=== PATIENT | female | born 1995 | race Caucasian/White ===

== ENCOUNTER 2018-04-17 00:46 | Observation (INO) | payer OTHER ==
[2018-04-17 01:30] VITALS: BP 112/65; PULSE 87; O2SAT 20
[2018-04-17 01:32] LABS: Amphetamine,Urine NEGATIVE (NEGATIVE); Barbiturate,Urine NEGATIVE (NEGATIVE); Benzodiazepine,Urine NEGATIVE (NEGATIVE); Cocaine,Urine NEGATIVE (NEGATIVE); Methadone,Urine NEGATIVE (NEGATIVE); Opiate,Urine NEGATIVE (NEGATIVE); PCP,Urine NEGATIVE (NEGATIVE); THC,Urine NEGATIVE (NEGATIVE)
[2018-04-17 02:27] LABS: Appearance CLEAR (CLEAR); Leukocyte Esterase TRACE (NEGATIVE)
[2018-04-17 02:28] LABS: Bilirubin NEGATIVE (NEGATIVE); Blood NEGATIVE Ery/ul (0-5); Glucose NEGATIVE (NEGATIVE); Ketones NEGATIVE (NEGATIVE); Nitrite NEGATIVE (NEGATIVE); Protein,Urine Dip NEGATIVE (Negative); Urobilinogen NORMAL mg/dL (0-1)
== END 2018-04-17 03:00 | disposition home or self-care (01) ==
LOC: UNDOADMOB 00:46 → OB 00:46 → UNDODISOB 03:00
PROVIDERS: ADMIT Family Medicine; ATTEND Family Medicine
DX: Z34.03 Encounter for supervision of normal first pregnancy, third trimester (principal)
CPT/HCPCS: 80307; 81001; 83986; G0378

== ENCOUNTER 2018-05-01 23:06 | Observation (INO) | payer OTHER ==
[2018-05-01 23:57] LABS: Amphetamine,Urine NEGATIVE (NEGATIVE); Barbiturate,Urine NEGATIVE (NEGATIVE); Benzodiazepine,Urine NEGATIVE (NEGATIVE); Cocaine,Urine NEGATIVE (NEGATIVE); Methadone,Urine NEGATIVE (NEGATIVE); Opiate,Urine NEGATIVE (NEGATIVE); PCP,Urine NEGATIVE (NEGATIVE); THC,Urine NEGATIVE (NEGATIVE)
[2018-05-02 02:53] VITALS: BP 115/62; PULSE 81
== END 2018-05-02 02:45 | disposition home or self-care (01) ==
LOC: UNDOADMOB 23:06 → OB 23:06 → UNDODISOB 05-02 02:45
PROVIDERS: ADMIT Family Medicine; ATTEND Family Medicine
DX: Z34.03 Encounter for supervision of normal first pregnancy, third trimester (principal)
CPT/HCPCS: 80307; G0378

== ENCOUNTER 2018-05-03 00:50 | Observation (INO) | payer OTHER ==
[2018-05-03] MEDS ORDERED: Lactated Ringers 1,000 ML IV SCH (04:30)
[2018-05-03 15:12] VITALS: BP 119/57; PULSE 75
== END 2018-05-03 15:47 | disposition home or self-care (01) ==
LOC: OB 00:50 → UNDOADMOB 00:50 → UNDODISOB 15:47
PROVIDERS: ADMIT Family Medicine; ATTEND Family Medicine
DX: Z34.03 Encounter for supervision of normal first pregnancy, third trimester (principal)
CPT/HCPCS: G0378

== ENCOUNTER 2018-05-06 15:16 | Observation (INO) | payer OTHER ==
[2018-05-06 15:56] VITALS: BP 116/73; PULSE 89; O2SAT 98
== END 2018-05-06 16:20 | disposition home or self-care (01) ==
LOC: OB 15:16
PROVIDERS: ADMIT Family Medicine; ATTEND Family Medicine
DX: Z34.03 Encounter for supervision of normal first pregnancy, third trimester (principal)
CPT/HCPCS: 59025; G0378

== ENCOUNTER 2018-05-09 14:31 | Observation (INO) | payer OTHER ==
[2018-05-09 15:26] VITALS: BP 121/67; PULSE 86
== END 2018-05-09 15:30 | disposition home or self-care (01) ==
LOC: OB 14:31
PROVIDERS: ADMIT Family Medicine; ATTEND Family Medicine
DX: Z34.03 Encounter for supervision of normal first pregnancy, third trimester (principal)
CPT/HCPCS: 59025; G0378

== ENCOUNTER 2018-05-12 09:26 | Inpatient (IN) | payer OTHER ==
[2018-05-12] MEDS ORDERED: BRETHINE 1 MG/ML SQ PRN (16:00)
[2018-05-12] MEDS ORDERED: Cervidil 10 MG VAG SCH (16:00)
[2018-05-12 18:14] LABS: Hematocrit 37.6 % (35-47); Hemoglobin 12.7 gm/dl (12.0-16.0); Mean Cell Volume 91.7 fl (78-100); Mean Corpuscular Hgb Concent. 33.8 g/dl (32-36); Platelet Count 170 K/mm3 (150-450); Red Cell Distribution Width 13.2 % (11.5-14.0); White Blood Count 14.4 K/mm3 (4.0-10.5)
[2018-05-12 19:14] LABS: Amphetamine,Urine NEGATIVE (NEGATIVE); Barbiturate,Urine NEGATIVE (NEGATIVE); Benzodiazepine,Urine NEGATIVE (NEGATIVE); Cocaine,Urine NEGATIVE (NEGATIVE); Methadone,Urine NEGATIVE (NEGATIVE); Opiate,Urine NEGATIVE (NEGATIVE); PCP,Urine NEGATIVE (NEGATIVE); THC,Urine NEGATIVE (NEGATIVE)
[2018-05-12 19:19] LABS: ATYPICAL LYMPHS 2 %; BAND 2 % (0.0-2.0); Eosinophil 1 % (0.00-3.0); Lymphocytes 30 % (24-44); Monocyte 4 % (0.0-12.0); Neutrophils 61 % (36.0-66.0); Total Cells Counted 100
[2018-05-12 19:20] LABS: Platelet Estimate NORMAL (NORMAL)
[2018-05-13] MEDS: Lactated Ringers 1,000 ML IV SCH ×2 (04:39→12:24)
[2018-05-13] MEDS ORDERED: XYLOCAINE 1% HCL 20 ML MDV IJ PRN (05:00)
[2018-05-13] MEDS ORDERED: PITOCIN 30 UNITS/ LR 500 ML 500 ML IV SCH (05:00)
[2018-05-13] MEDS ORDERED: OB EPIDURAL NAROPIN/SUFENTANIL IN NACL EPIDURAL PRN (12:24)
[2018-05-13] MEDS ORDERED: Lactated Ringers 1,000 ML IV ONE ×2 (12:24→17:15)
[2018-05-13] MEDS ORDERED: Ephedrine Sulfate 50 MG/ML IV PRN (12:24)
[2018-05-13] MEDS ORDERED: XYLOCAINE 2%/Epi 1:200000 20ML VIAL MPF ONE (14:53)
[2018-05-13] MEDS ORDERED: Nubain 10 MG/ML IV PRN (16:02)
[2018-05-13] MEDS ORDERED: HOLD NARCOTIC ANALGESICS AND SEDATIVES X24 HR MC PRN (16:02)
[2018-05-13] MEDS ORDERED: Sodium Chloride 0.9% 10 ML FLUSH Syringe IJ PRN (16:02)
[2018-05-13] MEDS ORDERED: PERCOCET TABLET 5/325MG PO PRN (16:02)
[2018-05-13] MEDS ORDERED: Zofran 4 MG/2 ML VIAL IV PRN (16:02)
[2018-05-13] MEDS ORDERED: Narcan 0.4 MG/ML IV PRN (16:02)
[2018-05-13] MEDS ORDERED: DEMEROL 50 MG IV PRN (16:02)
[2018-05-13] MEDS ORDERED: CLARITIN 10 MG PO PRN (16:02)
[2018-05-13] MEDS ORDERED: MORPHINE SULFATE 2 MG INJ IV PRN (16:02)
[2018-05-13] MEDS ORDERED: BENADRYL 50 MG/ML IV PRN (16:02)
[2018-05-13] MEDS ORDERED: Reglan 10 MG/2 ML IV SCH (16:15)
[2018-05-13] MEDS ORDERED: BICITRA 30 ML CUP PO SCH (16:15)
[2018-05-13] MEDS ORDERED: Pepcid 20 MG VIAL IV SCH (16:15)
[2018-05-13] MEDS ORDERED: CEFAZOLIN 2 GM-D5W BAG** 2 GM/50 ML ML IV SCH (16:30)
[2018-05-13] MEDS ORDERED: Lactated Ringers 1,000 ML IV SCH (16:30)
[2018-05-13 17:07] LABS: Hematocrit 36.8 % (35-47); Hemoglobin 12.3 gm/dl (12.0-16.0); Mean Cell Volume 92.5 fl (78-100); Mean Corpuscular Hemoglobin 30.9 pg (26-32); Mean Corpuscular Hgb Concent. 33.4 g/dl (32-36); Mean Platelet Volume 12.8 fl (6-9.5); Platelet Count 153 K/mm3 (150-450); Red Blood Count 3.98 M/mm3 (4.1-5.4); Red Cell Distribution Width 13.3 % (11.5-14.0); White Blood Count 18.7 K/mm3 (4.0-10.5)
[2018-05-13 17:12] LABS: INR 0.98 (0.8-3.0)
[2018-05-13 17:15] LABS: PTT 24.4 SECONDS (25.3-37.0)
[2018-05-13] MEDS ORDERED: Mylicon 80MG PO PRN (17:20)
[2018-05-13] MEDS ORDERED: Anucort-HC SUPPOSITORY PR PRN (17:20)
[2018-05-13] MEDS ORDERED: TUCKS TP PRN (17:20)
[2018-05-13] MEDS ORDERED: Dulcolax 10 MG SUPP PR PRN (17:20)
[2018-05-13] MEDS ORDERED: CORTISONE 1% CREAM TP PRN (17:20)
[2018-05-13] MEDS ORDERED: LANSINOH 40 GM TOP PRN (17:20)
[2018-05-13 17:41] LABS: ABO TYPING O; Antibody Screen NEGATIVE (NEGATIVE); RH TYPING POSITIVE
[2018-05-13 17:47] LABS: Appearance CLEAR (CLEAR); Bilirubin NEGATIVE (NEGATIVE); Blood NEGATIVE Ery/ul (0-5); Glucose NEGATIVE (NEGATIVE); Ketones NEGATIVE (NEGATIVE); Leukocyte Esterase NEGATIVE (NEGATIVE); Nitrite NEGATIVE (NEGATIVE); Protein,Urine Dip NEGATIVE (Negative); Urobilinogen NEGATIVE mg/dL (0-1)
[2018-05-13] MEDS: Dextrose 5%-Lr IV Solution 1000 ML 1,000 ML IV SCH (18:45)
[2018-05-13] MEDS: Colace 100 MG PO SCH (22:30)
[2018-05-14] MEDS: Dextrose 5%-Lr IV Solution 1000 ML 1,000 ML IV SCH (02:45)
[2018-05-14] MEDS: MOTRIN 400 MG PO PRN ×4 (03:49→23:59)
[2018-05-14 05:56] LABS: Hematocrit 28.6 % (35-47); Hemoglobin 9.4 gm/dl (12.0-16.0); Mean Cell Volume 93.8 fl (78-100); Mean Corpuscular Hemoglobin 30.8 pg (26-32); Mean Corpuscular Hgb Concent. 32.9 g/dl (32-36); Mean Platelet Volume 12.9 fl (6-9.5); Platelet Count 160 K/mm3 (150-450); Red Blood Count 3.05 M/mm3 (4.1-5.4); White Blood Count 23.9 K/mm3 (4.0-10.5)
[2018-05-14 06:43] LABS: Lymphocytes 18 % (24-44); Monocyte 3 % (0.0-12.0); Neutrophils 79 % (36.0-66.0); Platelet Estimate NORMAL (NORMAL); Total Cells Counted 100
[2018-05-14] MEDS ORDERED: Adacel Vial IM ONE (10:00)
[2018-05-14] MEDS: FERREX 150 PO SCH (10:38)
[2018-05-14] MEDS: Colace 100 MG PO SCH (10:38)
[2018-05-14] MEDS: TYLENOL EXTRA STRENGTH 500 MG PO PRN (12:13)
[2018-05-14] MEDS ORDERED: NORCO 5/325 MG PO PRN (17:00)
[2018-05-14] MEDS ORDERED: Ambien 10 MG PO PRN (17:20)
[2018-05-14 21:00] VITALS: O2SAT 98
[2018-05-15] MEDS: TYLENOL EXTRA STRENGTH 500 MG PO PRN (03:23)
--- NOTE | 2018-05-15 07:44 | OP ---
SURGERY DATE/TIME: 05/13/2018 1645 PREOPERATIVE DIAGNOSES: 1) Failed induction of labor. 2) Post-dates . POSTOPERATIVE DIAGNOSIS: 1) Failed induction of labor. 2) Post-dates . 3) Cephalopelvic disproportion. PROCEDURE: Primary section. SURGEON: Roberto Lehman M.D. ANESTHESIA: Epidural. ESTIMATED BLOOD LOSS: 400 ml. IV FLUIDS: 1500 ml of crystalloid. URINE OUTPUT: 300 ml of clear straw-colored urine. SPECIMEN: None. DESCRIPTION OF PROCEDURE: After informed, written consent was obtained, the patient had her previously placed laboring epidural dosed and she was taken to the operating room, prepped and draped in the usual sterile fashion. After adequate level of anesthesia was assessed, a skin incision was made by knife and carried down to the subcutaneous fat to the level of the fascia. The fascia was nicked on both sides of the midline in horizontal fashion using curved Keene scissors. The superior free edge of the fascia was grasped with Elaina clamps and the underlying rectus muscles were dissected free. The same was repeated inferiorly. The peritoneal cavity was opened in horizontal fashion. Bladder flap was then created and reflected over the lower uterine segment. Horizontal uterine incision was made by knife and carried down to the level of the amniotic membranes which were carefully artificially ruptured. There was scant thin meconium stained fluid present. A viable female was delivered from the vertex presentation with some caput noted although mom did not get beyond 2 cm and baby stayed high in the pelvis despite adequate trial of labor. The placenta was removed manually from the uterus after the baby was bulb suctioned from the oropharynx and nares and was handed off to the awaiting nursery team. The uterus was then exteriorized and uterine cavity was sponge curetted clean lap sponge. The uterine incision was closed with #1 chromic in a running locked fashion with good closure and good hemostasis. Posterior cul-de-sac was wiped free of blood and clot with moist lap sponge. The uterus was returned to the peritoneal cavity. Lateral gutters were wiped free of blood and clot with moist lap sponge. The incision was carefully inspected and noted to be hemostatic. Next, the fascia was closed with 0 Vicryl in a running locked fashion. Good closure and good hemostasis were achieved. The subcutaneous fat was irrigated with warm, sterile saline and finally the skin layer was closed with 4-0 undyed Vicryl in a running subcuticular fashion. Steri-Strips and occlusive dressing were placed over the incision. The patient was transferred to the recovery room in good condition.
[2018-05-15] MEDS: FERREX 150 PO SCH (09:56)
[2018-05-15] MEDS: Colace 100 MG PO SCH ×2 (09:56)
[2018-05-15] MEDS: MOTRIN 400 MG PO PRN ×2 (09:56→16:19)
--- NOTE | 2018-05-15 10:29 | PCM.DS ---
Discharge Summary Date of Admission: 05/13/18 09:26 Admitting Physician: CATINA BLACK Consults: Consults on Case 05/13/18 16:03 Notify Anesthesia Provider PRN Notify Anesthesia Provider ROUTINE Notify Physician OF ADMISSION Primary Care Provider: CATINA BLAKC Allergies Allergies Latex, Natural Rubber Allergy (Verified 05/13/18 11:18) Hospital Summary - Hospital Course Hospital Course: patient was induced at 41+ weeks with no progression in labor, likely CPD due to small maternal stature and inadequate pelvis. had primar on 05/13 with no complications. well, pain controlled, mild lochia. - Vitals & Intake/Output Vital Signs: Vital Signs Temperature 98.0 F 05/15/18 08:00 Pulse Rate 81 05/15/18 08:00 Respiratory Rate 18 05/15/18 08:00 Blood Pressure 120/79 05/15/18 08:00 O2 Sat by Pulse Oximetry 98 05/14/18 20:00 Intake & Output: Intake & Output 05/12/18 05/13/18 05/14/18 05/15/18 11:59 11:59 11:59 11:59 Intake Total 1000 8407 1200 Output Total 4225 Balance 1000 4182 1200 Weight 74.843 kg 74.843 kg - Lab Result Diagrams: 05/14/18 05:02 - Procedures and Test Procedures and Tests throughout Hospitalization: Therapy Orders & Screens 05/13/18 16:06 Oxygen OXYMASK-LPM 3% Comment: for O2 less than 93% & notify Anesthesia provider Diagnosis: induction of labor 05/13/18 18:28 Standby Routine Comment: Diagnosis: induction of labor Discharge Exam General Appearance: no apparent distress, alert Skin Exam: normal color, warm, dry Respiratory Exam: normal breath sounds, lungs clear, No respiratory distress Cardiovascular Exam: regular rate/rhythm, normal heart sounds Gastrointestinal/Abdomen Exam: soft, other (incision c/d/i), No tenderness, No mass Extremity Exam: normal inspection Final Diagnosis/Problem List - Final Discharge Diagnosis/Problem (1) delivery delivered Current Visit: Yes Status: Acute - Discharge Disposition: Home, Self-Care Condition: Stable Prescriptions: Continue Pnv No.95/Ferrous Fum/Folic AC [ Formula Tablet] 1 tab PO DAILY Ferrous Sulfate 325 mg PO DAILY Follow up with: CATINA BLACK MD [Primary Care Provider] - 1 Week
[2018-05-15] MEDS ORDERED: Decadron 4 MG INJ IV ONE (15:24)
[2018-05-15] MEDS ORDERED: Pitocin 10 UNITS/ML IV ONE (15:24)
[2018-05-15] MEDS ORDERED: Naropin 0.5% 30 ML VIAL IJ ONE (15:24)
[2018-05-15] MEDS ORDERED: DIPRIVAN 200 MG/20 ML IV ONE (15:24)
[2018-05-15] MEDS ORDERED: BREVIBLOC 100 MG/10 ML IV ONE (15:24)
[2018-05-15] MEDS ORDERED: Astramorph-Pf 5 MG/10 ML IJ ONE (15:24)
[2018-05-15] MEDS ORDERED: XYLOCAINE 2%/Epi 1:200000 20ML VIAL MPF IJ ONE (15:24)
[2018-05-15 17:38] VITALS: BP 110/59; PULSE 77
== END 2018-05-15 17:50 | disposition home or self-care (01) | DRG 788 ==
LOC: OB 09:26 → OBSVTOIN 05-13 09:26
PROVIDERS: ADMIT Family Medicine; ATTEND Family Medicine
PROC: 10D00Z1 Extraction of Products of Conception, Low, Open Approach (ICD-10-PCS; principal; 2018-05-13)
DX: O61.0 Failed medical induction of labor (principal); Z3A.41 41 weeks gestation of pregnancy; Z37.0 Single live birth; O33.8 Maternal care for disproportion of other origin; O48.0 Post-term pregnancy
CPT/HCPCS: 36415; 64488; 76937; 76942; 80307; 81001; 85025; 85027; 85610; 85730; 86850; 86900; 86901; 90471; 90715; 94799; G0378; J0690; J1100; J2274; J2590; J2704; J2795; A9270-GY